=== PATIENT | female | born 1980 | race Caucasian/White ===

== ENCOUNTER 2022-02-05 12:00 | Emergency (ER) | payer MEDICAID, OTHER ==
[2022-02-05 15:07] VITALS: BP 129/72; PULSE 90
== END 2022-02-05 13:05 | disposition left against medical advice (07) ==
LOC: VM.ED 12:00
DX: R41.0 Disorientation, unspecified (principal); K21.9 Gastro-esophageal reflux disease without esophagitis; E03.9 Hypothyroidism, unspecified; D64.9 Anemia, unspecified; E66.9 Obesity, unspecified; Z68.22 Body mass index [BMI] 22.0-22.9, adult; Z88.0 Allergy status to penicillin; Z88.1 Allergy status to other antibiotic agents; Z79.899 Other long term (current) drug therapy
CPT/HCPCS: 99283; 99284

== ENCOUNTER 2022-02-06 05:54 | Emergency (ER) | payer MEDICAID ==
[2022-02-06 06:46] LABS: CHLORIDE,CL 104 mmol/L (98-107); SODIUM,NA 141 mmol/L (136-145)
[2022-02-06 06:47] LABS: ANION GAP 16.5 mmol/L (5-15); ESTIMATED GFR 111 mL/min (>=60)
[2022-02-06 06:56] LABS: BARBITURATE SCREEN,URINE NEGATIVE (NEGATIVE); BENZODIAZEPINES SCREEN,URINE NEGATIVE (NEGATIVE); BUPRENORPHINE SCREEN,URINE NEGATIVE (NEGATIVE); METHAMPHETAMINE SCREEN, URINE POSITIVE (NEGATIVE); THC SCREEN,URINE 50 NG/ML NEGATIVE (NEGATIVE)
[2022-02-06] MEDS ORDERED: Sulfamethoxazole/Trimethoprim 400-80 MG Tab PO ONE (07:04)
[2022-02-06] MEDS ORDERED: Sulfamethoxazole/Trimethoprim 800-160 MG Tab PO ONE (07:07)
[2022-02-06 07:49] VITALS: BP 141/77; PULSE 82
== END 2022-02-06 07:20 | disposition home or self-care (01) ==
LOC: VM.ED 05:54
DX: N39.0 Urinary tract infection, site not specified (principal); F19.10 Other psychoactive substance abuse, uncomplicated; Z88.0 Allergy status to penicillin; Z88.8 Allergy status to other drugs, medicaments and biological substances
CPT/HCPCS: 80053; 80305; 81001; 83735; 84443; 85025; 86140; 87086; 99284; A9270